=== PATIENT | female | born 1975 | race Hispanic/Latino ===

== ENCOUNTER 2020-03-26 14:48 | Emergency (ER) | payer SELFPAY ==
[2020-03-26] MEDS ORDERED: ONDANSETRON 4 MG/2 ML INJ IV ONE (16:21)
[2020-03-26] MEDS ORDERED: MORPHINE 4 MG/1 ML INJ IV ONE (16:21)
--- NOTE | 2020-03-26 16:24 | Emergency Department Report ---
HPI - General Chief Complaint: Dyspnea/Respdistress Time Seen by Provider: 03/26/20 15:34 - HPI HPI: This is a 44-year-old female presents to the emergency department via EMS from home with complaint of a clogged trach and some midsternal to right- sided chest discomfort. She says that the chest pain has been going on since last night and is associated with some shortness of breath. She says that the trach has appeared clogged her since earlier today. The trach has been in place for about 1 month since it was placed at [facility] while admitted there for pneumonia. The patient admits that she was sent home with some antibiotics but did not yet take them secondary to some finances. She has a past medical history of diabetes, hypertension, CHF. No known aggravating or alleviating factors. ED Past Medical Hx - Past Medical History Previous Medical History?: Yes Hx Hypertension: Yes Hx Congestive Heart Failure: Yes Hx Diabetes: Yes - Surgical History Past Surgical History?: Yes Additional Surgical History: c-sections. tubal ligation - Social History Smoking Status: Former Smoker - Medications Home Medications: Home Medications Medication Instructions Recorded Confirmed Last Taken Type Lovastatin Tab [Mevacor] 10 mg PO QPM #30 tablet 05/04/14 Unknown Rx ED Review of Systems ROS: Stated complaint: DIFFICULTY BREATHING Other details as noted in HPI Comment: All other systems reviewed and negative Constitutional: denies: chills, fever Eyes: denies: eye pain, vision change ENT: denies: ear pain, throat pain Respiratory: cough, shortness of breath Cardiovascular: chest pain. denies: palpitations, edema Gastrointestinal: denies: abdominal pain, vomiting Genitourinary: denies: dysuria, discharge Musculoskeletal: denies: back pain, arthralgia Skin: denies: rash, lesions Neurological: denies: headache, weakness Physical Exam - Physical Exam Vital Signs: Vital Signs 03/26/20 15:00 Pulse Rate 67 Respiratory 20 Rate Blood Pressure 144/98 O2 Sat by Pulse 100 Oximetry Physical Exam: GENERAL: The patient is well-developed well-nourished. HENT: Normocephalic. Atraumatic. Patient has moist mucous membranes. EYES: Extraocular motions are intact. NECK: Supple. Trachea is midline. Trach and collar in place. CHEST/LUNGS: Coarse breath sounds. No tachypnea or accessory muscle use. There is no respiratory distress noted. There is an area of reproducible right-sided chest wall tenderness to palpation. No crepitus or deformity. HEART/CARDIOVASCULAR: Regular. There is no tachycardia. There is no murmur. ABDOMEN: Abdomen is soft, nontender. Patient has normal bowel sounds. Morbid obesity. SKIN: Skin is warm and dry. NEURO: The patient is awake, alert, and oriented. The patient is cooperative. The patient has no focal neurologic deficits. MUSCULOSKELETAL: There is no tenderness or deformity. There is no limitation range of motion. ED Course Vital Signs 03/26/20 15:00 Pulse Rate 67 Respiratory 20 Rate Blood Pressure 144/98 O2 Sat by Pulse 100 Oximetry - EJ/Peripheral Line Arm R Time Out Performed: Yes Indications: nurses unable to establis Skin Cleansed in Sterile Fashion: Yes Size: 22 Dressing Placed: Tegaderm, tape Patient Tolerated Procedure: well ED Medical Decision Making - Lab Data Result diagrams: 03/26/20 17:10 03/26/20 17:10 Lab Results 03/26/20 03/26/20 03/26/20 Range/Units 17:10 17:10 17:10 WBC 8.3 (4.5-11.0) K/mm3 RBC 4.88 (3.65-5.03) M/mm3 Hgb 13.1 (10.1-14.3) gm/dl Hct 41.6 (30.3-42.9) % MCV 85 (79-97) fl MCH 27 L (28-32) pg MCHC 32 (30-34) % RDW 18.7 H (13.2-15.2) % Plt Count 233 (140-440) K/mm3 Lymph % (Auto) 18.9 (13.4-35.0) % [place] % (Auto) 7.5 H (0.0-7.3) % Eos % (Auto) 0.7 (0.0-4.3) % Baso % (Auto) 1.3 (0.0-1.8) % Lymph # (Auto) 1.6 (1.2-5.4) K/mm3 [place] # (Auto) 0.6 (0.0-0.8) K/mm3 Eos # (Auto) 0.1 (0.0-0.4) K/mm3 Baso # (Auto) 0.1 (0.0-0.1) K/mm3 Seg Neutrophils % 71.6 H (40.0-70.0) % Seg Neutrophils # 6.0 (1.8-7.7) K/mm3 PT 13.2 (12.2-14.9) Sec. INR 1.02 (0.87-1.13) Sodium 136 L (137-145) mmol/L Potassium 3.2 L (3.6-5.0) mmol/L Chloride 92.6 L (98-107) mmol/L Carbon Dioxide 36 H (22-30) mmol/L Anion Gap 11 mmol/L BUN 10 (7-17) mg/dL Creatinine 0.8 (0.6-1.2) mg/dL Estimated GFR > 60 ml/min BUN/Creatinine Ratio 13 % Glucose 106 H (65-100) mg/dL Calcium 9.1 (8.4-10.2) mg/dL Troponin T < 0.010 (0.00-0.029) ng/mL NT-Pro-B Natriuret Pep 663.3 H (0-450) pg/mL - EKG Data -: EKG Interpreted by Ct EKG shows normal: sinus rhythm, axis, intervals, QRS complexes, ST-T waves Rate: normal - EKG Data When compared to previous EKG there are: previous EKG unavailable Interpretation: normal EKG - Radiology Data Radiology results: report reviewed XR chest 1V ap INDICATION / CLINICAL INFORMATION: SOB. COMPARISON: 05/03/2014. FINDINGS: SUPPORT DEVICES: The tracheostomy device projects in expected position in the trachea. HEART /PULMONARY VASCULATURE: The cardiac silhouette is enlarged. Central pulmonary vasculature is congested. LUNGS / PLEURA: Perihilar and bibasilar airspace opacities are present. There is no sizable pleural effusion. No pneumothorax. ADDITIONAL FINDINGS: No significant additional findings. IMPRESSION: Perihilar and bibasilar airspace opacities, which may reflect pulmonary edema or pneumonia. - Medical Decision Making This patient presents with the complaint that her tracheostomy is clogged, some shortness of breath, and right-sided chest pain. Heart sounds are normal to auscultation. Lung sounds are slightly coarse. The patient does not appear in any respiratory or acute distress. There is some reproducible right-sided chest wall pain without crepitus or deformity. EKG did not have any morphology consistent with ST elevation myocardial infarction. Chest x-ray shows either some mild pulmonary edema versus pneumonia. The patient's labs are mostly unremarkable including CBC, metabolic panel, coags, and a negative troponin. The proBNP is slightly elevated at about 660. Respiratory therapy was able to suction and clear some of the debris from the inner cannula of her trach. The patient's vital signs have been reassuring that her ED course including being afebrile. There has been no signs of any hypoxia and the patient has not required any supplemental oxygen. Patient was given a dose of IV analgesia with great improvement of her symptoms and resolution of the right-sided chest wall pain. She was given a dose of Lasix for some diuresis. The patient is low on the heart score criteria. She appears safe for discharge home at this time. She has an appointment with her physician tomorrow regarding her tracheostomy. Her contact information has been sent over to the [facility], and someone from their office should be contacting her shortly for close outpatient follow-up as per our [facility] low risk chest pain protocol. The patient will return to the emergency department with any worsening of her symptoms or with any acute distress. Critical Care Time: No Critical care attestation.: If time is entered above; I have spent that time in minutes in the direct care of this critically ill patient, excluding procedure time. ED Disposition Clinical Impression: Shortness of breath, Tracheostomy care CHF (congestive heart failure) Qualifiers: Heart failure type: unspecified Heart failure chronicity: unspecified Qualified Code(s): I50.9 - Heart failure, unspecified Disposition: DC-01 TO HOME OR SELFCARE Is pt being admited?: No Condition: Stable Instructions: Tracheostomy and Tracheostomy Tube Safety and Care, Adult, Heart Failure Exacerbation Additional Instructions: Please follow-up with your physician tomorrow regarding your tracheostomy care. Please follow-up with a primary care physician in the next few days. Take your antibiotics as previously prescribed. I am sending your contact information over to the [facility] and [facility] [place], and someone from their office should be contacting you shortly for close outpatient follow-up. Just in case, I am also giving you a referral for one of their guest specialist, Dr. Barger. Return to the emergency department with any worsening of your symptoms, new or concerning symptoms not addressed during this current emergency department vi sit, or with any acute distress. Referrals: PRIMARY CARE, [Primary Care Provider] - 3-5 Days LYUBOV BARGER MD [Staff Physician] - 3-5 Days [facility] [Provider Group] - 3-5 Days Time of Disposition: 19:31 HEART Score - HEART Score History: Slightly suspicious EKG: Normal Age: 45-65 Risk factors: 1-2 risk factors Troponin: Troponin T < 0.010 ng/mL (0.00-0.029) 03/26/20 17:10 Troponin: < normal limit HEART Score: 2 - Critical Actions Critical Actions: 0-3 pts:0.9-1.7%risk of adverse cardiac event.Candidate for discharge
--- NOTE | 2020-03-26 17:03 | XRay Report ---
XR chest 1V ap INDICATION / CLINICAL INFORMATION: SOB. COMPARISON: 05/03/2014. FINDINGS: SUPPORT DEVICES: The tracheostomy device projects in expected position in the trachea. HEART /PULMONARY VASCULATURE: The cardiac silhouette is enlarged. Central pulmonary vasculature is co ngested. LUNGS / PLEURA: Perihilar and bibasilar airspace opacities are present. There is no sizable pleural e ffusion. No pneumothorax. ADDITIONAL FINDINGS: No significant additional findings. IMPRESSION: Perihilar and bibasilar airspace opacities, which may reflect pulmonary edema or pneumonia. Signer Name: Fred Jimenez MD Signed: 03/26/2020 4:58 PM Workstation Name: [email or web address]
[2020-03-26 17:30] LABS: Basophils # (Auto) 0.1 K/mm3 (0.0-0.1); Basophils % (Auto) 1.3 % (0.0-1.8); Eosinophils # (Auto) 0.1 K/mm3 (0.0-0.4); Eosinophils % (Auto) 0.7 % (0.0-4.3); Hematocrit 41.6 % (30.3-42.9); Hemoglobin 13.1 gm/dl (10.1-14.3); Lymphocytes # (Auto) 1.6 K/mm3 (1.2-5.4); Lymphocytes % (Auto) 18.9 % (13.4-35.0); Mean Corpuscular HGB Conc 32 % (30-34); Mean Corpuscular Volume 85 fl (79-97); Monocytes # (Auto) 0.6 K/mm3 (0.0-0.8); Monocytes % (Auto) 7.5 % (0.0-7.3); Platelet Count 233 K/mm3 (140-440); Red Blood Count 4.88 M/mm3 (3.65-5.03); Red Cell Distribution Width 18.7 % (13.2-15.2)
[2020-03-26 17:43] LABS: INR 1.02 (0.87-1.13)
[2020-03-26 17:56] LABS: BUN/Creatinine Ratio 13; Blood Urea Nitrogen 10 mg/dL (7-17); Calcium 9.1 mg/dL (8.4-10.2); Hemolysis Index 7
[2020-03-26] MEDS ORDERED: POTASSIUM CHLORIDE ER 20 MEQ TAB PO ONE (17:58)
[2020-03-26] MEDS ORDERED: FUROSEMIDE 20 MG/2 ML INJ IV ONE (18:52)
[2020-03-26 19:58] VITALS: BP 137/66
== END 2020-03-26 19:57 | disposition home or self-care (01) ==
LOC: ED 14:48
DX: R06.02 Shortness of breath (principal); I11.0 Hypertensive heart disease with heart failure; I50.9 Heart failure, unspecified; E11.9 Type 2 diabetes mellitus without complications; Z79.899 Other long term (current) drug therapy; Z87.891 Personal history of nicotine dependence; Z98.51 Tubal ligation status; Z98.890 Other specified postprocedural states; Z43.0 Encounter for attention to tracheostomy
CPT/HCPCS: 36415; 71045; 80048; 83880; 84484; 85025; 85610; 96374; 96375; 99284; J1940; J2270; J2405; 93005

== ENCOUNTER 2020-04-10 10:53 | Emergency (ER) | payer SELFPAY ==
[2020-04-10 10:57] VITALS: BP 126/84
--- NOTE | 2020-04-10 11:17 | Emergency Department Report ---
ED General Adult HPI - General Chief complaint: Dyspnea/Respdistress Stated complaint: TRACH CLOGGED Time Seen by Provider: 04/10/20 11:03 Source: patient Mode of arrival: Ambulatory Limitations: No Limitations - History of Present Illness Initial comments: Patient is 45 years old female with history of congestive heart failure and chronic respiratory failure status post tracheostomy. Patient presented to the ER stating that she is having difficulty changing her tracheostomy tube and stating that it clogged. Patient denied any unusual shortness of breath, chest pain, fever or chills. - Related Data Previous Rx's Medication Instructions Recorded Last Taken Type Lovastatin Tab [Mevacor] 10 mg PO QPM #30 tablet 05/04/14 Unknown Rx Allergies Allergy/AdvReac Type Severity Reaction Status Date / Time No Known Allergies Allergy Verified 03/26/20 15:20 ED Review of Systems ROS: Stated complaint: TRACH CLOGGED Other details as noted in HPI Comment: All other systems reviewed and negative Constitutional: denies: chills, fever Respiratory: denies: cough, orthopnea, shortness of breath, SOB with exertion, SOB at rest, wheezing Cardiovascular: denies: chest pain, palpitations Gastrointestinal: denies: abdominal pain, nausea, vomiting, diarrhea, constipation, hematemesis Musculoskeletal: denies: back pain Neurological: denies: headache, weakness ED Past Medical Hx - Past Medical History Previous Medical History?: Yes Hx Hypertension: Yes Hx Congestive Heart Failure: Yes Hx Diabetes: Yes - Surgical History Past Surgical History?: Yes Additional Surgical History: c-sections. tubal ligation - Social History Smoking Status: Former Smoker - Medications Home Medications: Home Medications Medication Instructions Recorded Confirmed Last Taken Type Lovastatin Tab [Mevacor] 10 mg PO QPM #30 tablet 05/04/14 Unknown Rx ED Physical Exam - General Limitations: No Limitations General appearance: alert, in no apparent distress - Head Head exam: Present: atraumatic, normocephalic, normal inspection - Eye Eye exam: Present: normal appearance - ENT ENT exam: Present: other (Tracheostomy tube in place.) - Respiratory Respiratory exam: Present: normal lung sounds bilaterally - Cardiovascular Cardiovascular Exam: Present: regular rate, normal rhythm, normal heart sounds - GI/Abdominal GI/Abdominal exam: Present: soft, normal bowel sounds. Absent: distended, tenderness, guarding, rebound, rigid - Extremities Exam Extremities exam: Present: normal inspection, full ROM, normal capillary refill. Absent: tenderness - Back Exam Back exam: Present: normal inspection - Neurological Exam Neurological exam: Present: alert, oriented X3, CN II-XII intact - Psychiatric Psychiatric exam: Present: normal mood - Skin Skin exam: Present: warm, intact, normal color ED Course Vital Signs 04/10/20 04/10/20 04/10/20 10:55 11:58 11:59 Temperature 98.7 F Pulse Rate 85 Respiratory 26 H Rate Blood Pressure 126/84 [Right] O2 Sat by Pulse 94 95 Oximetry O2 Sat by Pulse 95 Oximetry [ Assessment] ED Medical Decision Making - Medical Decision Making Patient is 45 years old female with history of congestive heart failure and chronic respiratory failure status post tracheostomy. Patient presented to the ER stating that she is having difficulty changing her tracheostomy tube and stating that it clogged. Patient denied any unusual shortness of breath, chest pain, fever or chills. Tracheostomy tube changed by respiratory therapist. No shortness of breath. Patient given extra tube. Vital signs stable with oxygen saturation of 95%. Patient advised to follow-up with her primary doctor in the next 2 to 3 days and to return to the ER if she develop any new symptoms. Critical care attestation.: If time is entered above; I have spent that time in minutes in the direct care of this critically ill patient, excluding procedure time. ED Disposition Clinical Impression: Tracheostomy malfunction Disposition: - TO HOME OR SELFCARE Is pt being admited?: No Condition: Stable Instructions: How to Clean a Tracheostomy and Replace Tracheostomy Ties, Adult Referrals: PRIMARY CARE, [Primary Care Provider] - 3-5 Days
== END 2020-04-10 13:05 | disposition home or self-care (01) ==
LOC: ED 10:53
DX: J95.03 Malfunction of tracheostomy stoma (principal); I11.0 Hypertensive heart disease with heart failure; I50.9 Heart failure, unspecified; E11.9 Type 2 diabetes mellitus without complications; Z98.890 Other specified postprocedural states; Z79.899 Other long term (current) drug therapy; Z98.51 Tubal ligation status; Z87.891 Personal history of nicotine dependence
CPT/HCPCS: 94760; 99283

== ENCOUNTER 2020-04-20 19:36 | Emergency (ER) | payer SELFPAY ==
--- NOTE | 2020-04-20 20:21 | Emergency Department Report ---
Stated Complaint: TRACH PROBLEM Time Seen by Provider: 04/20/20 20:11 - HPI History of Present Illness: pt has a no 7 deflated trach; placed in February. She was concerned it came out- so she came to ER. The trach is in place. Stoma is pink. No secretions. Pt phonating and normal VS - ROS Review of Systems: recheck of trach - Exam Vital Signs: sat 100 RR 18 HR 90 Physical Exam: alert oriented talking lungs cta MSE screening note: Focused history and physical exam performed. Due to findings the following was ordered: Trach is in place Pt reassured. MSE with pcp follow upp Patient discussed with doctor:: FELICE MEDINA ED Disposition for MSE Clinical Impression: Encounter for wound re-check Disposition: MED SCREENING EXAM-LEFT Condition: Stable Time of Disposition: 20:24
[2020-04-20 20:23] VITALS: BP 112/46
== END 2020-04-20 21:20 | disposition left against medical advice (07) ==
LOC: ED 19:36
DX: Z53.21 Procedure and treatment not carried out due to patient leaving prior to being seen by health care provider (principal)

== ENCOUNTER 2020-12-10 09:47 | Outpatient (CLI) | payer OTHER ==
--- NOTE | 2020-12-10 11:09 | XRay Report ---
RIGHT HAND 3 VIEW(S) INDICATION / CLINICAL INFORMATION: RIGHT HAND PAIN COMPARISON: None available. FINDINGS: BONES / JOINT(S): No acute fracture or subluxation. No significant arthritis. SOFT TISSUES: No significant abnormality. ADDITIONAL FINDINGS: None. Signer Name: Catarino Bajwa MD Signed: 12/10/2020 11:05 AM Workstation Name: [email or web address]
--- NOTE | 2020-12-10 11:09 | XRay Report ---
BILATERAL KNEE 1 VIEW(S) INDICATION / CLINICAL INFORMATION: BILATERAL KNEE PAIN COMPARISON: None available. FINDINGS: BONES / JOINT(S): No acute fracture or subluxation. Mild joint space narrowing of the bilateral media l femorotibial compartments. SOFT TISSUES: No significant abnormality. ADDITIONAL FINDINGS: None. Signer Name: Catarino Bajwa MD Signed: 12/10/2020 11:04 AM Workstation Name: [email or web address]
== END 2020-12-10 09:48 | disposition home or self-care (01) ==
LOC: XRAY 09:47
PROVIDERS: ATTEND Internal Medicine
DX: M17.0 Bilateral primary osteoarthritis of knee (principal); M79.641 Pain in right hand
CPT/HCPCS: 73565